=== PATIENT | female | born 1985 ===

== ENCOUNTER 2016-11-08 20:40 | Emergency (ER) | payer SELFPAY ==
[2016-11-08 20:47] VITALS: BP 106/72; PULSE 70; RESP 18; TEMP 98.7; O2SAT 99
--- NOTE | 2016-11-08 21:00 | ED PDOC ---
HPI: Trauma/Fall - HPI Time Seen by Provider: 11/08/16 20:58 Chief Complaint (Nursing): Trauma Chief Complaint (Provider): right elbow help History Per: Patient History/Exam Limitations: no limitations Injury Occurred (Timing): Just Before Arrival Additional Complaint(s): 31yo F in ED for eval right elbow pain after slip and fall down 6 steps on staircase [employer] due to her slippers. PT denies head injury, admits to pain to elbow, unable to move and swelling. denies dec sensation, numbness to hands. right hand dominant. no hx of fx to UE. Past Medical History Reviewed: Historical Data, Nursing Documentation, Vital Signs Vital Signs: Last Vital Signs Temp 98.7 F 11/08/16 20:44 Pulse 70 11/08/16 20:44 Resp 18 11/08/16 20:44 BP 106/72 11/08/16 20:44 Pulse Ox 99 11/08/16 20:44 - Medical History PMH: No Chronic Diseases - Family History Family History: States: No Known Family Hx - Home Medications Home Medications: Ambulatory Orders Medication Instructions Recorded Ibuprofen [Motrin] 400 mg PO Q6 #30 tab 11/08/16 - Allergies Allergies/Adverse Reactions: Allergies Allergy/AdvReac Type Severity Reaction Status Date / Time No Known Allergies Allergy Verified 11/08/16 20:44 Review of Systems ROS Statement: Except As Marked, All Systems Reviewed And Found Negative Musculoskeletal: Positive for: Other (arm pain) Physical Exam - Reviewed Nursing Documentation Reviewed: Yes Vital Signs Reviewed: Yes - Physical Exam Appears: Positive for: Non-toxic, No Acute Distress, Uncomfortable Head Exam: Positive for: ATRAUMATIC, NORMAL INSPECTION, NORMOCEPHALIC Skin: Positive for: Normal Color, Warm, DRY Cardiovascular/Chest: Positive for: Regular Rate, Rhythm Respiratory: Positive for: CNT, Normal Breath Sounds Extremity: Positive for: Other (right elbow: defomrioty, swelling wamrth no defomirty to shoulder wrist normal appearing. FROM of digits. nuerovasc intact. axillary nerve intact unable to range elbow) Neurologic/Psych: Positive for: Alert, Oriented - ECG O2 Sat by Pulse Oximetry: 99 - Radiology X-Ray: Interpreted by Me (fat pad noted-sent to [facility]) - Progress ED Course And Treament: code ortho: given tordol IV and morphine with zofran xray and labs ice applied to area. impression:fracture vs dislocation. Medical Decision Making Medical Decision Making: dx: elbow fracture post. splint applied. advised to have ortho f.u pain control with motrin stable VS well appearing. sling provided. Procedures - Splinting Location: right elbow Hand-Made Type: orthoglass Splint: post. arm splint Pre-Proc Neuro Vasc Exam: normal Post-Proc Neuro Vasc Exam: normal Disposition - Clinical Impression Clinical Impression: Elbow fracture - Patient ED Disposition Is Patient to be Admitted: No Counseled Patient/Family Regarding: Studies Performed, Diagnosis, Need For Followup, Rx Given - Disposition Referrals: Julio Cho MD [Medical Doctor] - Fabiana Cárdenas MD [Staff Provider] - Disposition: Routine/Home Condition: STABLE Prescriptions: Ibuprofen [Motrin] 400 mg PO Q6 #30 tab Instructions: Elbow Fracture in Adults (ED) Forms: [facility] (Bhutanese), [facility] ED School/Work Excuse Print Language: KAZAKH
--- NOTE | 2016-11-08 22:22 | RAD ---
EXAM: XR Right Elbow Complete, 3 or More Views CLINICAL HISTORY: 31 years old, female; Injury or trauma; Fall; Initial encounter; Blunt trauma (contusions or hematomas; Elbow; Right; Injury details: Slipped and fell down 6 stairs; Additional info: Elbow pain TECHNIQUE: Frontal, lateral and oblique views of the right elbow. EXAM DATE/TIME: 11/08/2016 8:57 PM COMPARISON: There are no prior studies for comparison. FINDINGS: Bones/joints: There is medial soft tissue swelling. There is no effusion in the elbow joint. There are no fractures or dislocations. Bone mineralization is normal. Joint spaces are maintained. Soft tissues: See above. IMPRESSION: Medial soft tissue swelling, no fracture or effusion
== END 2016-11-08 23:01 | disposition home or self-care (01) ==
LOC: H.ER 20:40
DX: S59.901A Unspecified injury of right elbow, initial encounter (principal); W10.9XXA Fall (on) (from) unspecified stairs and steps, initial encounter; Y92.008 Other place in unspecified non-institutional (private) residence as the place of occurrence of the external cause
CPT/HCPCS: 29105; 73080; 81025; 96374; 96375; 99284; J1885; J2270; J2405